=== PATIENT | male | born 1960 ===

== ENCOUNTER → 2020-06-09 | Outpatient (CLI) | payer MEDICARE ==
[2020-06-11 17:10] LABS: CORONAVIRUS (COVID19) CSH-NRL Negative (Negative)
== END | disposition home or self-care (01) ==
LOC: LAB 11:43 → LAB SHORT 11:43
PROVIDERS: Family Medicine
DX: U07.1 COVID-19 (principal)
CPT/HCPCS: U0003

== ENCOUNTER → 2020-06-15 | Outpatient (CLI) | payer MEDICARE | END | disposition home or self-care (01) | LOC: LAB SHORT 14:37 → LAB EV 14:37 | DX: R30.0 Dysuria (principal) | CPT/HCPCS: 87077; 87086; 87186 ==